=== PATIENT | male | born 1945 | race Caucasian/White ===

== ENCOUNTER → 2022-07-19 10:46 | Outpatient (CLI) | payer OTHER, SELFPAY ==
[2022-07-19 11:57] LABS: COVID19 -Nasal RAPID Negative (Negative)
== END ==
PROVIDERS: Referring Provider Orthopaedic Surgery; Visit Provider Orthopaedic Surgery
DX: Z20.822 Contact with and (suspected) exposure to COVID-19 (principal)
CPT/HCPCS: 87635; C9803

== ENCOUNTER 2022-07-21 08:11 | Day surgery (SDC) | payer OTHER, SELFPAY ==
[2022-07-15 08:34] VITALS: BMI 29.7
[2022-07-21] VITALS (13 sets, daily range): BP systolic 106–142; BP diastolic 59–89; PULSE 71–97; RESP 15–21; TEMP 35.7–36.3; O2SAT 96–98; BMI 29.5; BMI 30.9
--- NOTE | 2022-07-21 06:00 | DI.RAD.S_ITS ---
PROCEDURE: XR KNEE LT 1TO2V INDICATIONS: prosthesis placement TECHNIQUE: 2 view(s) of the knee acquired. COMPARISON: None. FINDINGS: Bones: Patient is status post knee joint arthroplasty. Hardware components are in expected positions. Visualized bony structures are intact. Soft tissues: Overlying postoperative changes are noted. IMPRESSION: Postop changes from left total knee arthroplasty with anatomic left knee alignment. Dictated by: Lewis Brantley M.D. on 07/21/2022 at 13:05 Approved by: Lewis Brantley M.D. on 07/21/2022 at 13:05
[2022-07-21] MEDS: LACTATED RINGERS 1,000 ML 42 ML IV ×2 (09:00→11:41)
[2022-07-21] MEDS: ACETAMINOPHEN 325 MG TABLET 975 MG PO (09:01)
[2022-07-21] MEDS: CELECOXIB 200 MG CAPSULE PO (09:02)
[2022-07-21] MEDS: PREGABALIN 75 MG CAPSULE PO (09:02)
--- NOTE | 2022-07-21 09:28 | PM.PREOP ---
Pre-operative Note COVID-19 COVID-19 status: Negative Result date/Date tested (Pos, Neg/Pending): 07/19/22 Interval Note History & Physical reviewed/Exam performed by Physician: Yes Changes to H&P: No
[2022-07-21] MEDS: CEFAZOLIN 2 GM/100 ML PREMIX 100 ML IV ×2 (10:18→17:28)
[2022-07-21] MEDS: TRANEXAMIC ACID 1,000 MG VIAL 1000 MG INJ ×2 (10:25→11:23)
[2022-07-21] MEDS: BUPIVACAINE LIPOSOME 266 MG/20 ML VIAL INJ (10:35)
[2022-07-21] MEDS: BUPIVACAINE 0.25% (PF) 60 ML, EPINEPHrine 0.3 MG INJ (10:35)
[2022-07-21] MEDS: MORPHINE 4 MG/ML INJ INJ (10:36)
--- NOTE | 2022-07-21 10:38 | SUR.OPER ---
Supine on padded OR bed. Pillow under head, arms secured on padded armboards <90 degree abduction. Safety belt across torso. Non-operative leg secured with tape over blanket over lower leg. Operative leg secured in DeMayo/Tobi/Nathe positioner. Foam padded brace at thigh of operative leg.
--- NOTE | 2022-07-21 11:50 | PM.OP.1 ---
Operative Date/Time/Diagnoses Date of procedure: 07/21/22 Time of procedure: 11:50 Pre-op diagnosis: Left knee osteoarthritis Post-op diagnosis: same Procedure & Clinicians Procedure: Left total knee replacement Same procedure as scheduled: Yes Indications: The patient has had progressively worsening left knee pain with radiographic changes consistent with arthritis. Non-operative management has failed and the patient has requested total knee replacement. The risks, benefits and alternatives to surgery were discussed with the patient prior to proceeding. Risks discussed included, but were not limited to, failure to relieve pain, stiffness, infection, nerve damage, deep venous thrombosis, pulmonary embolism, stroke, coma, heart attack, permanent paralysis and , as well as the potential need for eventual revision of the prosthetic. Surgeon: Darius Gonzalez Dental Insurance Biller: Trisha Valladares Click Yes if Unassisted: No Anesthesia Type: General, Spinal and Local Operative Notes Findings: Severe tricompartmental osteoarthritis with [id number] in all compartments. Closure Type: primary Specimen(s): none sent Prosthetic devices, grafts, tissues, transplants, or devices: Implants used in this procedure were manufactured by the [employer] and [employer] and included the BCS II Journey total knee replacement with a size size 7 left cobalt chromium femoral component, a size 6 left non porous tibial base plate, a 9 mm cross-linked polyethylene tibial insert and a 41 mm oval Nancy II patellar component. Applied: implant(s) Estimated Blood Loss (mL): 25 Blood products transfused: none Tourniquet time (min): 50 Procedure in detail: The patient was seen in the pre-operative area, where the left knee was identified as the operative site and this was marked with my initials. The patient received pre-operative antibiotics, and was taken to the operating room and placed on the operative table in the supine position. After satisfactory anesthesia, a [employer] out was performed. The left leg was encircled with a tourniquet about the proximal thigh, and the leg was prepared from the toes to the tourniquet with ChloroPrep in the usual fashion and draped through sterile drapes. The leg was elevated and exsanguinated with Eschmark bandage and the tourniquet inflated to 250 mmHg pressure. The knee was approached through an approximately 18 cm incision centered over the patella and carried into the knee through a medial parapatellar arthrotomy. The anterior osteophytes and soft tissues were removed. The rotational landmarks of Delafield's line and the transepicondylar axis were marked on the femur with electrocautery, and intramedullary guide holes for the femur and tibia were created. The distal femoral cut was made in 6 degrees of valgus using the intramedullary guide at the primary cut setting. The proximal tibial cut was then made using the intramedullary guide, taking 9 mm of bone off the less involved side. The extension gap was checked and the rotation of the femoral component confirmed with the gap balancing blocks. The anterior, posterior and chamfer cuts were then made. The posterior osteophytes and soft tissues were then removed. The posterior capsule was injected with part of a mixture of 60 ml 0.25% Marcaine mixed with 20 ml Exparel and 4 mg of morphine for post-operative pain control. The remainder of this mixture was injected into the capsule and subcutaneous tissues during cement curing. The tibia was prepared with the rotation set by an extra medullary guide. Trial tibial and femoral components were then placed and the intercondylar notch cut through the femoral trial. Range of motion was 0-140 degrees, with good stability throughout the range. The patella was then cut to accommodate the patellar prosthetic. There was a mild tendency for lateral tracking, so a small lateral release was performed overlying the area of greatest capsular tension. The trials were then removed, and the femoral hole plugged with a bone plug. The bone was prepared with pulsatile lavage, and dried with a sponge. Cement was applied and the final prosthetics placed. Excess cement was removed during and after cement curing. After confirming there was no extruded cement posteriorly, the final tibial insert was placed. The knee was copiously irrigated and the tourniquet deflated. Hemostasis was obtained. The capsule was closed with interrupted # 2 polyester sutures. The subcutaneous layer was closed with 3-0 Vicryl, and the skin with a running 3-0 V-Lock suture and Dermabond. An Aquacel Ag dressing was applied and the patient was taken to recovery having tolerated the procedure well. The services of Ms. Valladares as a skilled assistant hall director were necessary to provide positioning, exposure and retraction for protection of vital structures. Without a skilled assistant hall director, the surgery could not have been performed expediently and safely. Complications: none Post-operative Condition: stable Disposition: PACU Plan for aftercare: The patient will be maintained on a standard total knee replacement protocol with weight bearing as tolerated. The patient will receive aspirin and sequential compression devices for DVT prophylaxis. The patient will be discharged home when safe for the home environment. He wishes to go home today. We will attempt to discharge him from the recovery room provided he is medically stable.
[2022-07-21] MEDS: OXYCODONE IR 5 MG TABLET PO ×2 (14:56→21:17)
--- NOTE | 2022-07-21 15:00 | PT.IIE ---
Current Diagnoses Unilateral primary osteoarthritis, left knee (07/21/22) Surgery Performed Operation Date: 07/21/22 10:00 Actual Procedures p Total Knee Arthroplasty(Left) - Darius Gonzalez MD Surgical History (Last Reviewed 07/21/22 @ 07:56 by Blake Peña, RN) H/O vasectomy History of esophagogastroduodenoscopy (EGD) History of surgery (01/2022) Hx of bilateral cataract extraction (01/2022) Hx of colonoscopy Medical History (Last Reviewed 07/21/22 @ 07:56 by Blake Peña, ADEOLA) Acid reflux Afib Cirrhosis COVID-19 virus infection Gout Hearing impaired HTN (hypertension) Osteoarthritis Physical Therapy Inpatient Evaluation/Re-Eval M1 PT/OT-IP Prior Functional Status Start: 07/21/22 16:21 Freq: NEEDED Status: Active Protocol: Document 07/21/22 15:00 AB (Rec: 07/21/22 16:31 AB [id number]) Medical Review Prior Functional Status Medical History Reviewed Yes Communication able to make needs known Mobility and Gait pt stated yamilex he is modified independent with all mobilities and ambulation without AD but stated that he does things slowly for safety; carries a SPC for outdoor mobility per pt but not really using it Social History Household Members significant other Living Arrangements House Number of Floors (Floors) One Floor Number of Stairs To Enter/Railing? ramp to enter Home Environment Standard Height Toilet,Walk in Shower,Ramp Home Equipment Front Wheel Walker,Shower Seat without Backrest M2 PT-IP Current Condition Start: 07/21/22 16:21 Freq: NEEDED Status: Active Protocol: Document 07/21/22 15:00 AB (Rec: 07/21/22 16:31 AB [id number]) Physical Therapy Current Condition Current Condition Evaluation Date 07/21/22 Treatment Diagnosis s/p L TKA; difficulty in walking Onset Date 07/21/22 M3 PT-IP Subjective Start: 07/21/22 16:21 Freq: NEEDED Status: Active Protocol: Document 07/21/22 15:00 AB (Rec: 07/21/22 16:31 AB [id number]) Subjective Physical Therapy Visit Type Type Initial Evaluation Visit Start Time 15:00 Visit Stop Time 16:15 Total Visit Minutes 75 Number of TRAVEL COORDINATOR Visits 0 Physical Therapy Visit Comments Patient Comments agreeable to do PT Therapy Pain Assessment Pain When Pain Assessed At Rest Pain Present Pain Present Pain Reported Location Left Knee Intensity 4 Scale Used 5/10 with mobility Pain Management Techniques Apply Cold,Distraction, Elevation,Modification of Treatment,Re-positioning, Timing of Activity with Medications M4 PT-IP Mobility and Gait Start: 07/21/22 16:21 Freq: NEEDED Status: Active Protocol: Document 07/21/22 15:00 AB (Rec: 07/21/22 16:31 AB [id number]) PT-Bed Mobility Assessment Supine to Sit Supine to Sit Standby Assistance PT-Transfer Assessment Sit to and From Stand Sit to and from Stand Contact Guard Assistance,1 Person Assistance,Use of Upper Extremities Equipment Transfer Assistive Device Gait Belt,Front Wheeled Walker Orthotic/Prosthetic Devices or Brace: No Transfers Transfer Destination Chair Transfer Technique Stand Step Pivot Transfer Ability Level of Assist Contact Guard Assistance,1 Person Assistance,Use of Upper Extremities Comments Mobility Comments completed supine to sit SBA. able to sit on EOB SBA. pt assisted with brief management . completed sit to stand from EOB CGA and cues. able to maintain standing using fWW CGA and assisted with brief management. step transfer to chair CGA using FWW with slight L knee buckling and cued for quads activation. pt educated on sit<>stand and completed x 3 reps CGA and cues and ambulated in room CGA ~ 30 ft with cues. pt sat back on chair. caregiver training conducted. educated pt's spouse on how to use safety belt and how to assist pt. spouse was able to put safety belt on and pt also assisted spouse. assisted pt with sit to stand and ambulation in room using FWW CGA ~ 45 ft. pt sat back on chair. positioned. call light and table placed within reach. informed nurse regarding pt's mobility. Gait Assessment Gait Gait Assistance Required: Contact Guard Assist Distance (Feet) 45 Able to Maintain Weight Bearing Status Yes During Gait Assistive Devices Assistive Device Gait Belt,Front Wheeled Walker Orthotic/Prosthetic Devices or Brace: No Gait Deviations General Gait Pattern Decreased Stride Length, Decreased Feet Clearance Factors Limiting Gait Function Factors Limiting Gait Function Decreased Activity Tolerance, Decreased Strength,Limited Range of Motion,Pain,Poor Balance,Poor Safety Awareness PT-Balance Assessment Sitting Balance and Reactions Static Sitting Balance Ability Normal Dynamic Sitting Balance Ability Good Standing Balance and Reactions Static Standing Balance Ability Fair Dynamic Standing Balance Ability Fair Device Used FWW M5 PT-IP Objective Assessments Start: 07/21/22 16:21 Freq: NEEDED Status: Active Protocol: Document 07/21/22 15:00 AB (Rec: 07/21/22 16:31 AB [id number]) Orientation Orientation/Cognition Level of Alertness Alert Orientation Name,Age,Birthday,Month,Date, Year,Day of Week,Place, Situation Language Function Ability Hard of Hearing Safety Awareness Decreased Safety Awareness Memory Description No Deficits Noted Gross Range of Motion Lower Extremity ROM Impairments L knee extension: ~ 20 deg less to 0 L knee flexion: ~ 90 deg Strength Lower Extremity Strength Assessment Left Impaired Knee 4-/5 Coordination Assessment Gross Coordination Gross Coordination WNL Muscle Tone Muscle Tone WNL Yes M6 PT-IP Treatment Start: 07/21/22 16:21 Freq: NEEDED Status: Active Protocol: Document 07/21/22 15:00 AB (Rec: 07/21/22 16:31 AB [id number]) Physical Therapy Treatment Education Education Provided Precautions,Weight Bearing Status,Post-Op Packet,Safety M7 PT-IP Assessment and Plan Start: 07/21/22 16:21 Freq: NEEDED Status: Active Protocol: Document 07/21/22 15:00 AB (Rec: 07/21/22 16:31 AB [id number]) PT Summary Assessment and Plan Potential Rehabilitation Potential Good Status of Condition at Evaluation Evolving Summary Impairments Pain,ROM,Strength,Balance, Coordination,Sensation,Tone, Cognition,Bed Mobility, Transfers,Gait,Activity Tolerance Assessment Summary pt requiring CGA with mobility using FWW. caregiver training conducted and spouse was able to assist pt with mobility. pt may go home when medically stable. Goals Bed Mobility Goal Independent Transfer Goal Independent,Front Wheeled Walker Gait Goal Independent,Front Wheel Walker Gait Distance 200 Days to Meet Goals 5 Frequency of Treatment Frequency Of Treatment Twice a Day Treatment Plan Physical Therapy Treatment Plan Bed Mobility Training,Transfer Training,Gait Training, Therapeutic Exercise,Balance Retraining,Post Op Education, Discharge Planning,Hot or Cold Pack,Neuromuscular Re-ed, Coordination Retraining,Manual Therapy Weight Bearing Status Weight Bearing Status Weight Bear as Tolerated Allowed Weight Bearing Amount (enter % LLE WBAT or #) (%) Recommendations To Nursing Amount of Assist Needed 1 Person Assist Discharge Recommendations PT Discharge Recommendations Home with Assistance, Outpatient PT Transportation Needs at Discharge Private Vehicle
--- NOTE | 2022-07-21 16:18 | PC.NURSE ---
pt worked with PT, SBA-fww. pt was incontinent of bladder.
[2022-07-21] MEDS: LACTATED RINGERS 1,000 ML 100 ML IV (16:22)
[2022-07-21] MEDS: IBUPROFEN 400 MG TABLET PO ×2 (17:28→21:18)
[2022-07-21] MEDS: ACETAMINOPHEN 325 MG TABLET 650 MG PO ×2 (17:29→23:49)
[2022-07-21] MEDS: ASPIRIN EC 81 MG TABLET PO (21:18)
[2022-07-21] MEDS: DOCUSATE 100 MG CAPSULE PO (21:18)
[2022-07-22] MEDS: IBUPROFEN 400 MG TABLET PO ×3 (00:53→09:10)
[2022-07-22 03:00] VITALS: BP 128/75; PULSE 77; RESP 17; TEMP 35.8; O2SAT 97
[2022-07-22 05:14] LABS: Hematocrit 34.2 % (41-53); Hemoglobin 11.7 g/dL (13.5-17.5)
[2022-07-22] MEDS: ACETAMINOPHEN 325 MG TABLET 650 MG PO (05:40)
[2022-07-22 07:33] VITALS: BP 135/72; PULSE 61; RESP 18; TEMP 36.1; O2SAT 98
--- NOTE | 2022-07-22 07:48 | PM.DS.1 ---
History of Present Illness History of Present Illness Date Patient Seen: 07/22/22 Time Patient Seen: 07:48 Chief complaint: OPB Narrative: History and physical is contained in the chart previously completed note. Please refer to that note for this information. Discharge Providers Provider Date of admission: July 21, 2022 Discharge Date: 07/22/22 Primary care physician: Doctor Duncan MD Consults: 07/21/22 06:00 Consult to Anesthesiology Routine Comment: Consulting Provider: Anesthesiologist Reason for consultation: Regional block for post operative pain control 07/21/22 14:36 Consult to Discharge Planning Routine Comment: Consult to Physical Therapy Evaluate & Treat Comment: Physician Instructions: postop TKA protocol Discharge provider: Darius Gonzalez MD Summary Hospital Course Discharge Diagnosis: 1. Left knee osteoarthritis 2. Post hemorrhagic anemia Hospital Course: Patient was admitted to the hospital and taken directly to the operating room on July 21, 2022 where he underwent a left total knee replacement without complications. On postoperative day 1 he was comfortable with well controlled pain. He did have a mild, anticipated post hemorrhagic anemia. Status at Discharge Cognitive/behavioral status at discharge: at baseline, oriented Functional status at discharge: uses cane/walker Overall status at discharge: patient is progressing back to baseline Time Spent with Patient Time spent: Less than 30 minutes Exam Vital Signs (past 8 hours): - 07/22/22 03:00 07/22/22 07:33 Temperature 96.4 F L 96.9 F L Pulse Rate 77 61 Respiratory Rate 17 18 Blood Pressure 128/75 135/72 Pulse Oximetry 97 98 Oxygen Flow Rate 0 Oxygen Delivery Method Room Air Oxygen Flow Rate 0 Narrative Exam Narrative: Left knee wound is dressed with no drainage on the bandage. Calf is soft. Light touch and motion are intact in the left lower extremity. Objective Labs Result Diagrams: 07/22/22 04:32 Labs: Laboratory Results - last 24 hr 07/22/22 04:32 Hgb 11.7 L Hct 34.2 L PFSH Medical History Acid reflux Afib Cirrhosis COVID-19 virus infection Gout Hearing impaired HTN (hypertension) Osteoarthritis Surgical History H/O vasectomy History of esophagogastroduodenoscopy (EGD) History of surgery (01/2022) Hx of bilateral cataract extraction (01/2022) Hx of colonoscopy Social History household members: significant other Smoking Status: Never smoker alcohol intake: current Discharge Assessment & Plan Assessment and Plan Assessment: Stable postoperative day 1 status post left total knee replacement. He has a mild, anticipated post hemorrhagic anemia, this should resolve with his standard diet. Plan of Treatment: Discharge today. Follow up in my office in 10-14 days. A prescription for oxycodone has been sent to his pharmacy. He has been instructed in the use of Tylenol and anti-inflammatories for baseline pain relief and the use of low-dose aspirin for DVT prophylaxis. Discharge Plan Discharge Plan Patient Disposition: Home Discharge orders & Medications Discharge Orders: Discharge (Order); Ordered 07/22/22 Ordered By: Darius Gonzalez Prescriptions: New acetaminophen 325 mg Tablet 650 mg PO Q6H Qty: 100 0RF oxycodone 5 mg Tablet 5 mg PO Q4H PRN (Reason: Pain, Moderate (4-6)) Qty: 40 0RF aspirin 81 mg Tablet,Delayed Release (Dr/Ec) 81 mg PO BID Qty: 84 0RF Continued omeprazole 20 mg Capsule,Delayed Release(Dr/Ec) 20 mg PO DAILY Xelpros 0.005 % Drops, Emulsion 1 drp EYE-BOTH BEDTIME atenolol 100 mg Tablet 100 mg PO QAM Discontinued aspirin 81 mg Capsule 81 mg PO DAILY Follow up/Referrals: Miscellaneous,DoctorMD [Primary Care Provider] - Darius Gonzalez MD [Physician] - As previously scheduled Diet/Activity/Treatments Diet: Diet as Tolerated and Regular Activity: You may bear weight as tolerated on your left leg. Cold/Heat Therapy: You may apply ice to the left knee for 15 minutes every hour as needed for pain control. Skin/Wound/Dressing Care Report to your healthcare provider any signs of infection, such as:: chills, fever, night sweats, increased pain, unusual drainage and unusual redness Dressing: You may remove the Josesito wrap 3 days after surgery and shower normally with the deeper dressing in place. Leave the deeper dressing in place until your postoperative follow-up. If the central strip of the deeper dressing becomes saturated with either water or blood, please call the office to have it evaluated. Visit Report/Discharge Packet Instructions: DI for Knee Replacement Stand Alone Forms: Surgery Discharge Discharge Data Primary Care Provider: Miscellaneous,Doctor Attending Provider: Darius Gonzalez VTE Deep Vein Thrombosis/Pulmonary Embolism Present on Admission: No
[2022-07-22 08:45] VITALS: BP 114/65; PULSE 86
[2022-07-22] MEDS: OXYCODONE IR 5 MG TABLET PO (09:10)
[2022-07-22] MEDS: DOCUSATE 100 MG CAPSULE PO (09:10)
[2022-07-22] MEDS: ASPIRIN EC 81 MG TABLET PO (09:10)
--- NOTE | 2022-07-22 10:40 | PT.IPTN ---
Current Diagnoses Unilateral primary osteoarthritis, left knee (07/21/22) Surgery Performed Operation Date: 07/21/22 10:00 Actual Procedures p Total Knee Arthroplasty(Left) - Darius Gonzalez MD Physical Therapy Treatment Note M2 PT-IP Current Condition Start: 07/21/22 16:21 Freq: NEEDED Status: Active Protocol: Document 07/21/22 15:00 AB (Rec: 07/21/22 16:31 AB [id number]) Physical Therapy Current Condition Current Condition Evaluation Date 07/21/22 Treatment Diagnosis s/p L TKA; difficulty in walking Onset Date 07/21/22 M3 PT-IP Subjective Start: 07/21/22 16:21 Freq: NEEDED Status: Active Protocol: Document 07/22/22 10:15 KS (Rec: 07/22/22 12:30 KS [id number]) Subjective Physical Therapy Visit Type Type Treatment Note Visit Start Time 10:15 Visit Stop Time 10:40 Total Visit Minutes 25 Number of FURNITURE DUSTER Visits 1 Physical Therapy Visit Comments Patient Comments agreeable to do PT M4 PT-IP Mobility and Gait Start: 07/21/22 16:21 Freq: NEEDED Status: Active Protocol: Document 07/22/22 10:15 KS (Rec: 07/22/22 12:30 KS [id number]) PT-Bed Mobility Assessment Scooting Scooting to Edge of Bed Standby Assistance PT-Transfer Assessment Sit to and From Stand Sit to and from Stand Standby Assistance,1 Person Assistance,Use of Upper Extremities Equipment Transfer Assistive Device Gait Belt,Front Wheeled Walker Orthotic/Prosthetic Devices or Brace: No Transfers Transfer Destination Chair Transfer Technique Pt ambulated w/ FWW Transfer Ability Level of Assist Standby Assistance,Contact Guard Assistance,1 Person Assistance,Use of Upper Extremities Comments Mobility Comments Pt in chair upon arrival and agreeable to ambulate. SBA for sit<>stand from chair w/ FWW. Pt ambulated ~70 ft w/ FWW SBA w/ min cues for quad activation/L knee extension. He then returned to chair SBA. Reveiwed ther ex and at home safety. Pt left in chair w/ all needs in reach. Gait Assessment Gait Gait Assistance Required: Standby Assistance Distance (Feet) 70 Able to Maintain Weight Bearing Status Yes During Gait Assistive Devices Assistive Device Gait Belt,Front Wheeled Walker Orthotic/Prosthetic Devices or Brace: No Gait Deviations General Gait Pattern Decreased Stride Length, Decreased Feet Clearance Factors Limiting Gait Function Factors Limiting Gait Function Decreased Activity Tolerance, Decreased Strength,Limited Range of Motion,Pain,Poor Balance,Poor Safety Awareness Comments Gait Comments Good tolerance and use of FWW, min cues for L knee extension . PT-Balance Assessment Sitting Balance and Reactions Static Sitting Balance Ability Normal Dynamic Sitting Balance Ability Good Standing Balance and Reactions Static Standing Balance Ability Good Dynamic Standing Balance Ability Fair Device Used FWW M5 PT-IP Objective Assessments Start: 07/21/22 16:21 Freq: NEEDED Status: Active Protocol: Document 07/21/22 15:00 AB (Rec: 07/21/22 16:31 AB [id number]) Orientation Orientation/Cognition Level of Alertness Alert Orientation Name,Age,Birthday,Month,Date, Year,Day of Week,Place, Situation Language Function Ability Hard of Hearing Safety Awareness Decreased Safety Awareness Memory Description No Deficits Noted Gross Range of Motion Lower Extremity ROM Impairments L knee extension: ~ 20 deg less to 0 L knee flexion: ~ 90 deg Strength Lower Extremity Strength Assessment Left Impaired Knee 4-/5 Coordination Assessment Gross Coordination Gross Coordination WNL Muscle Tone Muscle Tone WNL Yes M6 PT-IP Treatment Start: 07/21/22 16:21 Freq: NEEDED Status: Active Protocol: Document 07/22/22 10:15 KS (Rec: 07/22/22 12:30 KS [id number]) Physical Therapy Treatment Exercises Exercises Ankle Pumps,Gluteal Sets,Quad Sets,Heel Slides,Straight Leg Raises Education Education Provided Precautions,Weight Bearing Status,Post-Op Packet,Safety M7 PT-IP Assessment and Plan Start: 07/21/22 16:21 Freq: NEEDED Status: Active Protocol: Document 07/22/22 10:15 KS (Rec: 07/22/22 12:30 KS [id number]) PT Summary Assessment and Plan Potential Rehabilitation Potential Good Summary Impairments Pain,ROM,Strength,Balance, Coordination,Sensation,Tone, Cognition,Bed Mobility, Transfers,Gait,Activity Tolerance Progress Towards Goals Progressing Toward Goals Assessment Summary Pt w/ good carryover, improved tolerance for ambulation w/ FWW and only requiring SBA for mobility. He feels safe to d/ c home w/ and has completed caregiver training. He will benefit from OPPT to improve strength, stability, and ROM. Goals Bed Mobility Goal Independent Transfer Goal Independent,Front Wheeled Walker Gait Goal Independent,Front Wheel Walker Gait Distance 200 Days to Meet Goals 5 Frequency of Treatment Frequency Of Treatment Twice a Day Treatment Plan Physical Therapy Treatment Plan Bed Mobility Training,Transfer Training,Gait Training, Therapeutic Exercise,Balance Retraining,Post Op Education, Discharge Planning,Hot or Cold Pack,Neuromuscular Re-ed, Coordination Retraining,Manual Therapy Weight Bearing Status Weight Bearing Status Weight Bear as Tolerated Allowed Weight Bearing Amount (enter % LLE WBAT or #) (%) Recommendations To Nursing Amount of Assist Needed 1 Person Assist Discharge Recommendations PT Discharge Recommendations Home with Assistance, Outpatient PT Transportation Needs at Discharge Private Vehicle
--- NOTE | 2022-07-22 10:51 | PC.NURSE ---
Patient given oxycodone before working with physical therapy. Dressing with pawel wrap to l.knee is cdi. Patient has been cleared by physical therapy and will be going home today.
== END 2022-07-22 12:45 | disposition home or self-care (01) ==
LOC: OR 08:12 → AC 08:12
PROVIDERS: Referring Provider Orthopaedic Surgery; Visit Provider Orthopaedic Surgery
PROC: 0SRD0JZ Replacement of Left Knee Joint with Synthetic Substitute, Open Approach (ICD-10-PCS; CPT 27447; principal; 2022-07-21 10:00)
DX: M17.12 Unilateral primary osteoarthritis, left knee (principal); I10 Essential (primary) hypertension; I48.91 Unspecified atrial fibrillation
CPT/HCPCS: 27447; 36415; 73560; 85014; 85018; 97110; 97116; 97162; 97530; C1776; C1713; C9290; J0171; J0690; J1100; J2270; J2405; J2704; J3010